=== PATIENT | male | born 1945 | race Caucasian/White ===

== ENCOUNTER → 2016-08-31 | Day surgery (SDC) | payer OTHER ==
[2016-08-16 11:45] VITALS: Ht 172.7 cm; Wt 73.6 kg
[~2016-08-31] VITALS: Ht 172.7 cm; Wt 73.6 kg
[~2016-08-31] MED LIST: 500ML BSS 0.3ML EPI 1:1000PF IRRIG ONE; ACETAMINOPHEN 325 MG TAB PO PRN; AMVISC PLUS 0.8ML SYRINGE INT OCU ONE; ASPI81TA28 PO; ATOR-26 PO; ATROPINE SULFATE 0.1 MG/ML 5ML SYR IV PRN; BSS FLUSH ONE; CALC600T9 PO; ENDOCOAT 0.85ML SYRINGE INT OCU ONE; EpHEDrine SULFATE INJ 50 MG/ML AMP IV PRN; EpINEphrine INJ 1MG/ML AMP 1 MG/ML AMP ONE; FENTANYL CITRATE INJ 50 MCG/1 ML 2 ML VIAL IV PRN; FLUMAZENIL 0.1 MG/1 ML 10 ML VIAL IV PRN; FLUT0.15 NAE; FSMD/70 PO; HYDROmorphone INJ 2 MG/ML SYR/VIAL IV PRN; LABETALOL HCL IV 5 MG/ML 20ML IV PRN; LACTATED RINGER'S 1000ML 500 ML IV SCH; LEVO1TAB35 PO; LIDOCAINE 4% OP SOLN DROP CHARGE ONE; LIDOCAINE 4% OP SOLN DROP CHARGE OPR SCH; LIDOCAINE HCL 1% MPF 2 ML VIAL ONE; LISI5TAB PO; MEPERIDINE HCL 25 MG/ML CARP IV PRN; MIDAZOLAM HCL 1 MG/ML 2ML VIAL ONE; MIX: 4ML BSS 1ML EPI 1:1000 PF TOP ONE; MOXIFLOXACIN OPH SOLN PER DROP CHARGE ONE; MULT-506 PO; NALOXONE HCL 0.4 MG/1 ML VIAL/CARP IV PRN; OMEG10007 PO; ONDANSETRON INJ 2 MG/ML 2 ML VIAL IV PRN; PHENYLEPHRINE 100MCG/ML 5ML SYR IV PRN; POVIDONE-IODINE OP SOLN 30 ML BTL ONE; PRED10TA PO; PROPARACAINE 0.5% OP SOLN PER DROP CHARGE OPR SCH; SILD100T PO; TOBRAMYCIN/DEXAMETHASONE OPH OINT PER APPLN CHARGE ONE
[2016-08-31] MEDS: PHENYLEPHRINE HCL 2.5% OP SOLN PER DROP CHARGE OPR SCH ×3 (09:46→09:57)
[2016-08-31] MEDS: TROPICAMIDE 1% OP SOLN PER DROP CHARGE OPR SCH ×3 (09:47→09:57)
[2016-08-31] MEDS: CYCLOPENTOLATE HCL 1% OP SOLN PER DROP CHARGE OPR SCH ×3 (09:48→09:58)
[2016-08-31] MEDS: MOXIFLOXACIN OPH SOLN PER DROP CHARGE OPR SCH ×3 (09:49→09:59)
--- NOTE | 2016-08-31 10:15 | History & Physical Bridge - [place] ---
H&P Re-Evaluation Bridge Note: I have examined the patient, reviewed the History & Physical and in the interval since the performance of the History & Physical I have noted the following changes of clinical significance: No changes noted. Right eye cataract surgery.
--- NOTE | 2016-08-31 12:06 | [facility] Post Operative Brief Note ---
Immediate Operative Summary Operative Date August 31, 2016. Pre-Operative Diagnosis Right Eye Cataract Post-Operative Diagnosis same Procedure(s) Performed Right Cataract Phacoemulsification With Intraocular Lens Implant Surgeon Dr Ayala Marketing [employer] Development Coordinator Surgeon(s) none Estimated Blood Loss 0 Findings right cataract Specimens none Complication(s) None Disposition
--- NOTE | 2016-08-31 12:07 | [facility] Operative Report ---
Operative Report Date of Service August 31, 2016. Operative Report Phaco with monofocal IOL DATE OF OPERATION: 08/31/16 PREOPERATIVE DIAGNOSIS: Senile nuclear cataract, right eye POSTOPERATIVE DIAGNOSIS: Senile nuclear cataract, right eye PROCEDURE PERFORMED: Phacoemulsification with intraocular lens implantation, right eye SURGEON: Dr. Froilan Ayala ANESTHESIA: Topical with 1% intracameral lidocaine and monitored anesthesia care COMPLICATIONS: None DESCRIPTION OF PROCEDURE: After positively identifying the patient both verbally and by wristband in the preoperative area, the right eye was marked as the operative eye. The patient was then brought back to the operating room by the anesthesia and nursing staff where they were given a drop of Lidocaine and betadine into the operative eye. They were then sterilely prepped and draped in the standard fashion typical for ophthalmic surgery. Steri-strips were placed along the upper eyelids to keep the lashes back, and a lid speculum was placed into the operative eye. At this point, a documented time out was performed with members of the ophthalmology, nursing, and anesthesia staffs all agreeing upon the correct patient, correct location for surgery, correct procedure, and correct type and power of intraocular lens to be implanted. The microscope was then swung into position. First, a paracentesis wound was made using a sideport blade. Then, in sequence, 1% preservative-free lidocaine followed by Endocoat viscoelastic was injected into the anterior chamber. Next , the main incision was made with a keratome blade in triplanar fashion. A sharp cystotome was introduced into the eye and used to create a tear in the anterior capsule, which was directed into a continuous curvilinear capsulorrhexis using Utrata forceps. Hydrodissection was then performed with BSS on a flat-tip cannula. Next, the phacoemulsification handpiece was introduced into the eye and used to remove the nucleus in a [id number] fashion. This was done without complication and then the irrigation-aspiration handpiece was introduced into the eye and used to remove all remaining cortical and epinuclear material. Amvisc was then injected into the anterior chamber as well as into the capsular bag and using the lens injector system, an MX60 20.0 D lens, serial number [id number], and expiration date 03/2019 was injected into the capsular bag and rotated into the correct position. Next, the irrigation- aspiration handpiece was used to remove all remaining Amvisc. BSS was used to hydrate the main wound, and then BSS was injected into the paracentesis site to reach physiologic pressure and then the main wound was checked and found to be watertight. The patient was given drops of Vigamox and Tobradex ointment into the operative eye, and then the surrounding area was cleaned and dried. A clear plastic shield was placed over the eye and the patient was then sat up and taken from the operating room by the anesthesia staff having tolerated the procedure well and suffering no complications. DISPOSITION: The patient was returned to the recovery room in stable condition. I attest to the content of the Intraoperative Record and any orders documented therein. Any exceptions are noted below.
[2016-08-31 12:08] VITALS: TEMP 36.6
--- NOTE | 2016-08-31 12:08 | Discharge Instructions-SurgCtr ---
Discharge Instructions Date of Service August 31, 2016. Visit Reason for Visit: Right Cataract Discharge Discharge Diagnosis / Problem: right cataract Discharge Goals Goal(s): Decrease discomfort, Improve function Activity Recommendations Activity Limitations: as noted below Anesthesia . Post Anesthesia Instructions: If you have had General Anesthesia or IV Sedation: * Do not drive today. * Resume driving when surgeon permits. * Do not make important decisions or sign legal documents today. * Call surgeon for: 1. Temperature elevations greater than 101 degrees F. 2. Uncontrollable pain. 3. Excessive bleeding. 4. Persistent nausea and vomiting. 5. Medication intolerance (nausea, vomiting or rash). * For nausea and vomiting use only clear liquids such as: tea, soda, bouillon until nausea subsides, then gradually increase diet as tolerated. * If you have any concerns or questions, call your surgeon's office. If physician is unavailable and it is an emergency, call 911 or go to the nearest emergency room. . Instructions / Follow-Up Instructions / Follow-Up ACTIVITY RECOMMENDATIONS: * Light activities. * You may walk outside, read, watch television. * You may notice redness on the white part of the eye and some blurry vision - this is normal. MEDICATIONS: Resume previous medications unless instructed otherwise by your surgeon. Start all eye drops at 2 pm today: * Eye drops (today): Prednisone - one drop in operative eye every 2 hours while awake Ofloxacin - one drop in operative eye every 2 hours while awake Ketorolac - one drop in operative eye 4 times daily SPECIAL CARE INSTRUCTIONS: * Tape plastic shield over eye to sleep at night. Call your doctor at with any concerns or problems. FOLLOW UP VISIT: Follow-up with Dr Ayala at [place] office as scheduled. Diet Recommendations Home Diet: no limitations Procedures Procedures Performed: Right Cataract Phacoemulsification With Intraocular Lens Implant Pending Studies Studies pending at discharge: no Medical Emergencies . Who to Call and When: Medical Emergencies: If at any time you feel your situation is an emergency, please call 911 immediately. . Non-Emergent Contact Non-Emergency issues call your: Surgeon . . "Provider Documentation" section prepared by Froilan Ayala. .
--- NOTE | 2016-08-31 12:25 | Anesthesia Progress Nt - [facility] ---
Anesthesia Post Op Note Date & Time August 31, 2016 at 12:25 Vital Signs Pain Intensity: 0 Vital Signs Past 12 Hours Date Time Temp Pulse Resp B/P Pulse Ox O2 Delivery O2 Flow Rate FiO2 08/31/16 12:08 36.6 46 16 126/71 98 Room Air 08/31/16 09:15 36.7 53 16 161/85 97 Room Air Notes Mental Status: alert / awake / arousable, participated in evaluation Pt Amnestic to Procedure: Yes Nausea / Vomiting: adequately controlled Pain: adequately controlled Airway Patency, RR, SpO2: stable & adequate BP & HR: stable & adequate Hydration State: stable & adequate Anesthetic Complications: no major complications apparent
[2016-08-31 12:29] VITALS: BP 122/67; PULSE 52; O2SAT 100
== END | disposition home or self-care (01) ==
LOC: X.SURG 09:02
PROVIDERS: ATTEND Ophthalmology
DX: H25.11 Age-related nuclear cataract, right eye (principal); I10 Essential (primary) hypertension; E78.00 Pure hypercholesterolemia, unspecified; Z85.46 Personal history of malignant neoplasm of prostate; Z79.82 Long term (current) use of aspirin; Z79.899 Other long term (current) drug therapy

== ENCOUNTER → 2016-09-21 | Day surgery (SDC) | payer OTHER ==
[2016-09-13 10:16] VITALS: Ht 172.7 cm; Wt 73.6 kg
[~2016-09-21] VITALS: Ht 172.7 cm; Wt 73.6 kg
[~2016-09-21] MED LIST changes: -FENTANYL CITRATE INJ 50 MCG/1 ML 2 ML VIAL IV PRN; -FLUMAZENIL 0.1 MG/1 ML 10 ML VIAL IV PRN; -HYDROmorphone INJ 2 MG/ML SYR/VIAL IV PRN; -LABETALOL HCL IV 5 MG/ML 20ML IV PRN; -LEVO1TAB35 PO; +LIDOCAINE 4% OP SOLN DROP CHARGE OPL SCH; -LIDOCAINE 4% OP SOLN DROP CHARGE OPR SCH; -MEPERIDINE HCL 25 MG/ML CARP IV PRN; -NALOXONE HCL 0.4 MG/1 ML VIAL/CARP IV PRN; -PHENYLEPHRINE 100MCG/ML 5ML SYR IV PRN; +PROPARACAINE 0.5% OP SOLN PER DROP CHARGE OPL SCH; -PROPARACAINE 0.5% OP SOLN PER DROP CHARGE OPR SCH
--- NOTE | 2016-09-21 09:56 | History & Physical Bridge - [place] ---
H&P Re-Evaluation Bridge Note: I have examined the patient, reviewed the History & Physical and in the interval since the performance of the History & Physical I have noted the following changes of clinical significance: No changes noted. Left eye cataract surgery.
[2016-09-21] MEDS: PHENYLEPHRINE HCL 2.5% OP SOLN PER DROP CHARGE OPL SCH ×3 (09:59→10:10)
[2016-09-21] MEDS: TROPICAMIDE 1% OP SOLN PER DROP CHARGE OPL SCH ×3 (10:01→10:11)
[2016-09-21] MEDS: CYCLOPENTOLATE HCL 1% OP SOLN PER DROP CHARGE OPL SCH ×3 (10:02→10:12)
[2016-09-21] MEDS: MOXIFLOXACIN OPH SOLN PER DROP CHARGE OPL SCH ×3 (10:03→10:13)
--- NOTE | 2016-09-21 11:10 | [facility] Post Operative Brief Note ---
Immediate Operative Summary Operative Date Sep 21, 2016. Pre-Operative Diagnosis Left eye cataract Post-Operative Diagnosis Same as preop Procedure(s) Performed Left Cataract Phacoemulsification With Intraocular Lens Implant Surgeon Dr. Ayala Salesperson [employer]s Surgeon(s) None Estimated Blood Loss 0 mL Findings left cataract Specimens None Complication(s) None Disposition
--- NOTE | 2016-09-21 11:11 | [facility] Operative Report ---
Operative Report Date of Service Sep 21, 2016. Operative Report Phaco with monofocal IOL DATE OF OPERATION: 09/21/16 PREOPERATIVE DIAGNOSIS: Senile nuclear cataract, left eye POSTOPERATIVE DIAGNOSIS: Senile nuclear cataract, left eye PROCEDURE PERFORMED: Phacoemulsification with intraocular lens implantation, left eye SURGEON: Dr. Froilan Ayala ANESTHESIA: Topical with 1% intracameral lidocaine and monitored anesthesia care COMPLICATIONS: None DESCRIPTION OF PROCEDURE: After positively identifying the patient both verbally and by wristband in the preoperative area, the left eye was marked as the operative eye. The patient was then brought back to the operating room by the anesthesia and nursing staff where they were given a drop of Lidocaine and betadine into the operative eye. They were then sterilely prepped and draped in the standard fashion typical for ophthalmic surgery. Steri-strips were placed along the upper eyelids to keep the lashes back, and a lid speculum was placed into the operative eye. At this point, a documented time out was performed with members of the ophthalmology, nursing, and anesthesia staffs all agreeing upon the correct patient, correct location for surgery, correct procedure, and correct type and power of intraocular lens to be implanted. The microscope was then swung into position. First, a paracentesis wound was made using a sideport blade. Then, in sequence, 1% preservative-free lidocaine followed by Endocoat viscoelastic was injected into the anterior chamber. Next , the main incision was made with a keratome blade in triplanar fashion. A sharp cystotome was introduced into the eye and used to create a tear in the anterior capsule, which was directed into a continuous curvilinear capsulorrhexis using Utrata forceps. Hydrodissection was then performed with BSS on a flat-tip cannula. Next, the phacoemulsification handpiece was introduced into the eye and used to remove the nucleus in a [id number]-qbw-[id number] fashion. This was done without complication and then the irrigation-aspiration handpiece was introduced into the eye and used to remove all remaining cortical and epinuclear material. Amvisc was then injected into the anterior chamber as well as into the capsular bag and using the lens injector system, an MX60 20.0 D lens, serial number [id number], and expiration date 03/2019 was injected into the capsular bag and rotated into the correct position. Next, the irrigation- aspiration handpiece was used to remove all remaining Amvisc. BSS was used to hydrate the main wound, and then BSS was injected into the paracentesis site to reach physiologic pressure and then the main wound was checked and found to be watertight. The patient was given drops of Vigamox and Tobradex ointment into the operative eye, and then the surrounding area was cleaned and dried. A clear plastic shield was placed over the eye and the patient was then sat up and taken from the operating room by the anesthesia staff having tolerated the procedure well and suffering no complications. DISPOSITION: The patient was returned to the recovery room in stable condition. I attest to the content of the Intraoperative Record and any orders documented therein. Any exceptions are noted below.
[2016-09-21 11:12] VITALS: TEMP 36.5
--- NOTE | 2016-09-21 11:12 | Discharge Instructions-SurgCtr ---
Discharge Instructions Date of Service Sep 21, 2016. Visit Reason for Visit: Left Cataract Discharge Discharge Diagnosis / Problem: left cataract Discharge Goals Goal(s): Decrease discomfort, Improve function Activity Recommendations Activity Limitations: as noted below Anesthesia . Post Anesthesia Instructions: If you have had General Anesthesia or IV Sedation: * Do not drive today. * Resume driving when surgeon permits. * Do not make important decisions or sign legal documents today. * Call surgeon for: 1. Temperature elevations greater than 101 degrees F. 2. Uncontrollable pain. 3. Excessive bleeding. 4. Persistent nausea and vomiting. 5. Medication intolerance (nausea, vomiting or rash). * For nausea and vomiting use only clear liquids such as: tea, soda, bouillon until nausea subsides, then gradually increase diet as tolerated. * If you have any concerns or questions, call your surgeon's office. If physician is unavailable and it is an emergency, call 911 or go to the nearest emergency room. . Instructions / Follow-Up Instructions / Follow-Up ACTIVITY RECOMMENDATIONS: * Light activities. * You may walk outside, read, watch television. * You may notice redness on the white part of the eye and some blurry vision - this is normal. MEDICATIONS: Resume previous medications unless instructed otherwise by your surgeon. Start all eye drops at 1:00 pm today: * Eye drops (today): Prednisone - one drop in operative eye every 2 hours while awake Ofloxacin - one drop in operative eye every 2 hours while awake Ketorolac - one drop in operative eye 4 times daily SPECIAL CARE INSTRUCTIONS: * Tape plastic shield over eye to sleep at night. Call your doctor at with any concerns or problems. FOLLOW UP VISIT: Follow-up with Dr Ayala at [facility] as scheduled. Diet Recommendations Home Diet: no limitations Procedures Procedures Performed: Left Cataract Phacoemulsification With Intraocular Lens Implant Pending Studies Studies pending at discharge: no Medical Emergencies . Who to Call and When: Medical Emergencies: If at any time you feel your situation is an emergency, please call 911 immediately. . Non-Emergent Contact Non-Emergency issues call your: Surgeon . . "Provider Documentation" section prepared by Froilan Ayala. .
[2016-09-21 11:31] VITALS: BP 134/62; PULSE 45; O2SAT 100
--- NOTE | 2016-09-21 11:32 | Anesthesia Progress Nt - [facility] ---
Anesthesia Post Op Note Date & Time Sep 21, 2016 at 11:32 Vital Signs Pain Intensity: 0 Vital Signs Past 12 Hours Date Time Temp Pulse Resp B/P (MAP) Pulse Ox O2 Delivery O2 Flow Rate FiO2 09/21/16 11:12 36.5 44 16 122/74 (90) 98 Room Air 09/21/16 09:49 36.7 48 20 140/68 (92) 96 Room Air Notes Mental Status: alert / awake / arousable, participated in evaluation Pt Amnestic to Procedure: Yes Nausea / Vomiting: adequately controlled Pain: adequately controlled Airway Patency, RR, SpO2: stable & adequate BP & HR: stable & adequate Hydration State: stable & adequate Anesthetic Complications: no major complications apparent
== END | disposition home or self-care (01) ==
LOC: X.SURG 09:29
PROVIDERS: ATTEND Ophthalmology
DX: H25.12 Age-related nuclear cataract, left eye (principal); I25.10 Atherosclerotic heart disease of native coronary artery without angina pectoris; I10 Essential (primary) hypertension; Z85.46 Personal history of malignant neoplasm of prostate; Z90.79 Acquired absence of other genital organ(s); Z98.890 Other specified postprocedural states